=== PATIENT | female | born 1995 | race Two or more races ===

== ENCOUNTER 2023-11-07 01:00 | Emergency (ER) | payer MEDICAID, OTHER ==
[~2023-11-07] VITALS: Ht 147.3 cm; Wt 49.9 kg
[2023-11-07 01:04] VITALS: BP 108/63; PULSE 84; RESP 16; TEMP 97.4; O2SAT 100
== END 2023-11-07 01:18 ==
LOC: MED 01:00
DX: M25.539 Pain in unspecified wrist (principal); Z02.89 Encounter for other administrative examinations; W22.11XA Striking against or struck by driver side automobile airbag, initial encounter; Y93.89 Activity, other specified; Y92.89 Other specified places as the place of occurrence of the external cause; Y99.8 Other external cause status
CPT/HCPCS: 99283